=== PATIENT | male | born 1960 | race Caucasian/White ===

== ENCOUNTER 2017-09-30 10:48 | Emergency (ER) | payer BC ==
[2017-09-30] MEDS: HYDROCODONE/APAP (10/325) TAB PO (13:50)
== END 2017-09-30 15:08 | disposition home or self-care (01) ==
LOC: FTE 10:48
DX: M54.5 Low back pain (principal); R07.9 Chest pain, unspecified
CPT/HCPCS: 71045; 72100; 93005; 99284-25